=== PATIENT | male | born 1960 | race Hispanic/Latino ===

== ENCOUNTER 2018-03-11 09:15 | Emergency (ER) | payer SELFPAY ==
[2018-03-11 10:25] LABS: URINE BLOOD DIPSTICK LARGE (NEGATIVE); URINE GLUCOSE - DIPSTICK 100 mg/dL (NEGATIVE); URINE KETONE 15 mg/dL (NEGATIVE); URINE PH 6.5 (4.5-8.0); URINE PROTEIN - DIPSTICK >=300 mg/dL (NEG-TRACE); URINE SPECIFIC GRAVITY 1.025; URINE UROBILINOGEN - DIPSTICK >=8.0 E.U./dL (0.2)
[2018-03-11 10:35] LABS: URINE BILIRUBIN - DIPSTICK MODERATE (NEGATIVE); URINE CLARITY CLOUDY; URINE COLOR DK. YELLOW; URINE LEUK ESTERASE MODERATE (NEGATIVE); URINE NITRITE - DIPSTICK POSITIVE (Negative)
[2018-03-11 10:36] LABS: URINE BACTERIA MANY hpf; URINE EPITHELIAL CELLS MODERATE EPI/hpf (0-FEW); URINE RBC 50-100 RBC/hpf (0-5); URINE WBC 20-50 WBC/hpf (0-5)
[2018-03-11] MEDS ORDERED: CIPROFLOXACN500 MG PO (10:41)
[2018-03-11] MEDS ORDERED: PYRIDIUM200 MG PO (10:41)
[2018-03-11 10:52] VITALS: BP 118/72
== END 2018-03-11 11:01 | disposition home or self-care (01) | DRG 869 ==
LOC: ED 09:15
PROVIDERS: Emergency Medicine
DX: A02.29 Salmonella with other localized infection (principal); E11.9 Type 2 diabetes mellitus without complications